=== PATIENT | female | born 1935 | race Two or more races ===

== ENCOUNTER 2020-10-22 09:24 | Emergency (ER) | payer OTHER ==
[~2020-10-22] VITALS: Ht 152.4 cm; Wt 49.0 kg
== END 2020-10-22 16:15 | disposition home or self-care (01) ==
LOC: ER 09:24
DX: J84.10 Pulmonary fibrosis, unspecified (principal); R06.02 Shortness of breath

== ENCOUNTER 2020-11-26 15:25 | Emergency (ER) | payer OTHER ==
[~2020-11-26] VITALS: Ht 152.4 cm; Wt 48.5 kg
[2020-11-26] MEDS ORDERED: CRESTOR5 MG (15:58)
[2020-11-26] MEDS ORDERED: DUTOPROL 100-11 EACH (15:58)
[2020-11-26] MEDS ORDERED: ZOLOFT25 MG (15:59)
[2020-11-26] MEDS ORDERED: AVAPRO75 MG (15:59)
== END 2020-11-26 19:07 | disposition home or self-care (01) ==
LOC: ER 15:25
DX: M79.645 Pain in left finger(s) (principal); M79.642 Pain in left hand

== ENCOUNTER 2021-02-05 15:18 | Inpatient (IN) | payer OTHER ==
[~2021-02-05] VITALS: Ht 160 cm; Wt 52.2 kg
[~2021-02-05 15:18] MED LIST: AVAPRO75 MG; CRESTOR5 MG; DUTOPROL 100-11 EACH; ZOLOFT25 MG
[2021-02-07] MEDS ORDERED: NORVASC2.5 MG (08:12)
[2021-02-07] MEDS ORDERED: METOPROLOL SUCC50 MG (08:12)
[2021-02-07] MEDS ORDERED: CANDESARTAN CIL16 MG (08:12)
[2021-02-11] MEDS ORDERED: ELIQUIS2.5 MG PO (10:45)
[2021-02-11] MEDS ORDERED: ACETAMINOPHEN-1 EAC2 PO (10:45)
== END 2021-02-11 14:18 | disposition home or self-care (01) | DRG 522 ==
LOC: ER 15:18 → SEC-K 17:55 → SURH 17:55 → MEDJ 20:12 → SURH 20:19
PROVIDERS: Orthopaedic Surgery; ADMIT Internal Medicine; ATTEND Internal Medicine
PROC: 0SRE0JZ Replacement of Left Hip Joint, Acetabular Surface with Synthetic Substitute, Open Approach (ICD-10-PCS; principal; 2021-02-06 14:00)
PROC: 3E0F7SF Introduction of Other Gas into Respiratory Tract, Via Natural or Artificial Opening (ICD-10-PCS; 2021-02-07)
PROC: 30233N1 Transfusion of Nonautologous Red Blood Cells into Peripheral Vein, Percutaneous Approach (ICD-10-PCS; 2021-02-09)
DX: S72.092A Other fracture of head and neck of left femur, initial encounter for closed fracture (principal); D62 Acute posthemorrhagic anemia; J84.10 Pulmonary fibrosis, unspecified; I10 Essential (primary) hypertension; W18.30XA Fall on same level, unspecified, initial encounter; M81.0 Age-related osteoporosis without current pathological fracture; Z20.822 Contact with and (suspected) exposure to COVID-19; R41.0 Disorientation, unspecified; F41.9 Anxiety disorder, unspecified; F32.9 Major depressive disorder, single episode, unspecified

== ENCOUNTER 2021-12-25 18:57 | Emergency (ER) | payer OTHER ==
[~2021-12-25] VITALS: Ht 157.5 cm; Wt 65.8 kg
[~2021-12-25 18:57] MED LIST changes: +ACETAMINOPHEN-1 EAC2 PO; +CANDESARTAN CIL16 MG; +ELIQUIS2.5 MG PO; +METOPROLOL SUCC50 MG; +NORVASC2.5 MG
== END 2021-12-25 21:48 | disposition home or self-care (01) ==
LOC: ER 18:57
DX: M81.0 Age-related osteoporosis without current pathological fracture (principal); Z96.642 Presence of left artificial hip joint

== ENCOUNTER 2024-06-20 22:36 | Emergency (ER) | payer OTHER ==
[~2024-06-20] VITALS: Ht 160 cm; Wt 45.4 kg
[2024-06-20] MEDS ORDERED: ACETAMINOPHEN 325 MG TABLET PO STA (23:08)
== END 2024-06-21 | disposition home or self-care (01) ==
LOC: ER 22:36
DX: S09.8XXA Other specified injuries of head, initial encounter (principal); W06.XXXA Fall from bed, initial encounter; Y93.89 Activity, other specified; Y92.89 Other specified places as the place of occurrence of the external cause; Y99.8 Other external cause status

== ENCOUNTER 2024-08-21 14:19 | Emergency (ER) | payer OTHER ==
[~2024-08-21] VITALS: Ht 157.5 cm; Wt 47.6 kg
[2024-08-21] MEDS ORDERED: AVAPRO150 MG PO (14:45)
[2024-08-21] MEDS ORDERED: TETANUS & DIPHTHERIA TOX,ADULT 0.5 ML VIAL IM ONE (15:00)
[2024-08-21] MEDS ORDERED: LIDOCAINE HCL 1% 10ML VIAL IJ ONE (15:00)
== END 2024-08-21 18:07 | disposition home or self-care (01) ==
LOC: ER 14:19
DX: S01.82XA Laceration with foreign body of other part of head, initial encounter (principal); W18.39XA Other fall on same level, initial encounter; Y93.89 Activity, other specified; Y92.018 Other place in single-family (private) house as the place of occurrence of the external cause; E78.00 Pure hypercholesterolemia, unspecified; I10 Essential (primary) hypertension

== ENCOUNTER 2024-10-25 18:12 | Emergency (ER) | payer OTHER ==
[~2024-10-25] VITALS: Ht 152.4 cm; Wt 46.3 kg
[~2024-10-25 18:12] MED LIST changes: +AVAPRO150 MG PO
[2024-10-25] MEDS ORDERED: ATACAND16 MG PO (18:21)
[2024-10-25] MEDS ORDERED: KETOROLAC TROMETHAMINE 30 MG VIAL IM ONE (18:30)
[2024-10-25] MEDS ORDERED: KETOROLAC TROMETHAMINE 30 MG VIAL ONE (18:34)
== END 2024-10-25 22:06 | disposition home or self-care (01) ==
LOC: ER 18:12
DX: R07.81 Pleurodynia (principal); W18.39XA Other fall on same level, initial encounter; Y93.89 Activity, other specified; Y92.89 Other specified places as the place of occurrence of the external cause
CPT/HCPCS: 96372; 99282; J1885

== ENCOUNTER 2025-07-13 17:07 | Emergency (ER) | payer OTHER ==
[~2025-07-13] VITALS: Ht 154.9 cm; Wt 49.9 kg
[~2025-07-13 17:07] MED LIST changes: +ATACAND16 MG PO
== END 2025-07-13 20:34 | disposition home or self-care (01) ==
LOC: ER 17:07
DX: R51.9 Headache, unspecified (principal); I10 Essential (primary) hypertension